=== PATIENT | male | born 1955 | race African-American/Black ===

== ENCOUNTER 2017-07-21 21:33 | Emergency (ER) | payer MEDICAID, OTHER ==
[~2017-07-21 21:33] MED LIST: LISI-363 PO; TRAM50 PO
[2017-07-21 21:35] VITALS: BP 195/90; PULSE 100; RESP 16; TEMP 98.8; O2SAT 97
[2017-07-21] MEDS ORDERED: SODIUM CHLORIDE 0.9% FLUSH 10 ML FLUSH IV FLUSH PRN (22:15)
[2017-07-21 22:38] LABS: AUTOMATED NEUTROPHIL # 5.2 TH/MM3 (1.8-7.7); BASOPHIL % 0.3 % (0.0-2.0); EOSINOPHIL # 0.2 TH/MM3 (0-0.4); EOSINOPHIL % 2.6 % (0.0-4.0); HEMATOCRIT 40.4 % (39.0-51.0); HEMO FLAGS DIFF FINAL; LYMPH % 30.2 % (9.0-44.0); LYMPHOCYTE # 2.7 TH/MM3 (1.0-4.8); MEAN CELL VOLUME 83.4 FL (80.0-100.0); MEAN CORPUSCULAR HEMOGLOBIN 26.9 PG (27.0-34.0); MEAN CORPUSCULAR HGB CONC 32.3 % (32.0-36.0); MONO % 8.7 % (0.0-8.0); NEUT % 58.2 % (16.0-70.0); PLATELET COUNT 239 TH/MM3 (150-450); RED BLOOD COUNT 4.85 MIL/MM3 (4.50-5.90); RED CELL DISTRIBUTION WIDTH 13.1 % (11.6-17.2); WHITE BLOOD COUNT 8.9 TH/MM3 (4.0-11.0)
[2017-07-21 22:39] LABS: BLOOD, URINE NEG (NEG); GLUCOSE,URINE 1000 mg/dL (NEG); KETONE, URINE TRACE mg/dL (NEG); NITRITE,URINE NEG (NEG); PH, URINE 5.5 (5.0-8.5); URINE COLOR LIGHT-YELLOW (YELLW/STRAW)
[2017-07-21 22:40] VITALS: BP 144/73; PULSE 95; RESP 18; O2SAT 99
[2017-07-21 22:44] LABS: COMMENT (UR) CULT NOT INDICATED; CULTURE IF INDICATED CULT NOT INDICATED
--- NOTE | 2017-07-21 22:46 | PD ---
HPI . Abdominal pain and dizziness Chief Complaint: Abdominal Pain Time Seen by Provider: 22:09 Travel History International Travel<30 days: No Contact w/Intl Traveler<30days: No Traveled to known affect area: No History of Present Illness HPI Patient presents with a two-week history of diffuse abdominal pain associated with nausea and dizziness. He is describing diffuse abdominal discomfort. He rates it 5/10. He has not noted any modifying factors. He further reports that his stool is getting dark and he also states that he urinates all the time. He states he has to get up numerous times during the night to urinate. No dysuria. No fever. No nausea, vomiting or diarrhea. There was nothing different about his problems tonight that caused him to present to the emergency department. [facility] Past Medical History Cardiovascular Problems: Yes (HYPERTENSION) High Cholesterol: Yes Diminished Hearing: No Hypertension: Yes Tetanus Vaccination: Unknown Influenza Vaccination: No Past Surgical History Other Surgery: Yes (RIGHT GROIN HERNIA) Social History Alcohol Use: No Tobacco Use: No Substance Use: No Allergies-Medications (Allergen,Severity, Reaction): Coded Allergies: No Known Allergies (Unverified , 07/21/17) Reported Meds & Prescriptions Reported Meds & Active Scripts Active Metformin (Metformin HCl) 500 Mg Tab 500 Mg PO BIDPC Prilosec (Omeprazole Magnesium) 20 Mg Tab 20 Mg PO DAILY Review of Systems Except as stated in HPI: all other systems reviewed are Neg General / Constitutional: Positive: Weight Loss, No: Fever, Chills Eyes: No: Blurred Vision HENT: Positive: Lightheadedness Cardiovascular: No: Chest Pain or Discomfort Respiratory: No: Shortness of Breath Gastrointestinal: Positive: Abdominal Pain, No: Nausea, Vomiting, Diarrhea Genitourinary: Positive: Frequency, Nocturia, No: Dysuria, Decreased Urinary Output Musculoskeletal: Positive: Arthralgias (chronic left hip pain) Physical Exam Narrative GENERAL: Awake and alert and in no acute distress. SKIN: warm/dry. HEAD: Normocephalic. Atraumatic. EYES: Pupils equal and round. No scleral icterus. No injection or drainage. ENT: No nasal bleeding or discharge. Mucous membranes pink and moist. NECK: Trachea midline. Full range of motion without pain.. CARDIOVASCULAR: Regular rate and rhythm. Soft systolic ejection murmur. RESPIRATORY: No accessory muscle use. Clear to auscultation. Breath sounds equal bilaterally. GASTROINTESTINAL: Abdomen soft. Nontender. Bowel sounds present. Nondistended. RECTAL: Prostate is enlarged. It is smooth. There is brown stool in the rectal vault. No hemorrhoids noted. MUSCULOSKELETAL: No obvious deformities. NEUROLOGICAL: Awake and alert. No obvious cranial nerve deficits. Motor grossly within normal limits. Normal speech. PSYCHIATRIC: Appropriate mood and affect; insight and judgment normal. Data Data Last Documented VS Vital Signs Date Time Temp Pulse Resp B/P (MAP) Pulse Ox O2 Delivery O2 Flow Rate FiO2 07/21/17 22:40 95 18 144/73 (96) 99 Room Air 07/21/17 21:35 98.8 Orders Orders Complete Blood Count With Diff (07/21/17 22:10) Comprehensive Metabolic Panel (07/21/17 22:10) Lipase (07/21/17 22:10) Lactic Acid (07/21/17 22:10) Urinalysis - C+S If Indicated (07/21/17 22:10) Iv Access Insert/Monitor (07/21/17 22:10) Sodium Chloride 0.9% Flush (Ns Flush) (07/21/17 22:15) Sodium Chlor 0.9% 1000 Ml Inj (Ns 1000 M (07/21/17 23:00) Ct Abd/Pel W/O Iv Contrast (07/21/17 22:51) Insulin Human Regular Inj (Novolin R Inj (07/21/17 23:15) Famotidine Inj (Pepcid Inj) (07/22/17 00:15) Labs Laboratory Tests Test 07/21/17 22:30 White Blood Count 8.9 TH/MM3 Red Blood Count 4.85 MIL/MM3 Hemoglobin 13.1 GM/DL Hematocrit 40.4 % Mean Corpuscular Volume 83.4 FL Mean Corpuscular Hemoglobin 26.9 PG Mean Corpuscular Hemoglobin Concent 32.3 % Red Cell Distribution Width 13.1 % Platelet Count 239 TH/MM3 Mean Platelet Volume 8.2 FL Neutrophils (%) (Auto) 58.2 % Lymphocytes (%) (Auto) 30.2 % Monocytes (%) (Auto) 8.7 % Eosinophils (%) (Auto) 2.6 % Basophils (%) (Auto) 0.3 % Neutrophils # (Auto) 5.2 TH/MM3 Lymphocytes # (Auto) 2.7 TH/MM3 Monocytes # (Auto) 0.8 TH/MM3 Eosinophils # (Auto) 0.2 TH/MM3 Basophils # (Auto) 0.0 TH/MM3 CBC Comment DIFF FINAL Differential Comment Urine Color LIGHT-YELLOW Urine Turbidity CLEAR Urine pH 5.5 Urine Specific [place] 1.030 Urine Protein NEG mg/dL Urine Glucose (UA) 1000 mg/dL Urine Ketones TRACE mg/dL Urine Occult Blood NEG Urine Nitrite NEG Urine Bilirubin NEG Urine Urobilinogen LESS THAN 2.0 MG/DL Urine Leukocyte Esterase NEG Urine RBC LESS THAN 1 /hpf Urine WBC LESS THAN 1 /hpf Microscopic Urinalysis Comment CULT NOT INDICATED Blood Urea Nitrogen 15 MG/DL Creatinine 1.46 MG/DL Random Glucose 494 MG/DL Total Protein 7.4 GM/DL Albumin 3.3 GM/DL Calcium Level 8.7 MG/DL Alkaline Phosphatase 106 U/L Aspartate Amino Transf (AST/SGOT) 12 U/L Alanine Aminotransferase (ALT/SGPT) 20 U/L Total Bilirubin 0.4 MG/DL Sodium Level 131 MEQ/L Potassium Level 4.3 MEQ/L Chloride Level 97 MEQ/L Carbon Dioxide Level 24.6 MEQ/L Anion Gap 9 MEQ/L Estimat Glomerular Filtration Rate 59 ML/MIN Lactic Acid Level 1.2 mmol/L Lipase 335 U/L MDM Medical Decision Making Medical Screen Exam Complete: Yes Emergency Medical Condition: Yes Differential Diagnosis Differential diagnosis of abdominal pain includes but is not limited to gastritis, pancreatitis, hepatitis, gastroenteritis, gallbladder disease, constipation, urinary retention, UTI, peptic ulcer disease, diverticulitis or appendicitis Narrative Course Patient presents for evaluation of abdominal pain, dark stools, urinary symptoms and dizziness. Stools are Hemoccult positive. CBC & BMP Diagram 07/21/17 22:30 Total Protein 7.4, Albumin 3.3 L, Calcium Level 8.7, Alkaline Phosphatase 106, Aspartate Amino Transf (AST/SGOT) 12 L, Alanine Aminotransferase (ALT/SGPT) 20, Total Bilirubin 0.4 UA>> + glucose CT abd/pelvis: 1. Localized mesenteric edema/fat stranding in the upper abdomen as described above, probably on the basis of pancreatitis or duodenitis/peptic ulcer disease. No abscess or perforation demonstrated. 2. Other findings appear chronic. Small cysts of the liver, small probable cyst of the lower pole of the right kidney and atherosclerosis of the abdominal aorta noted. I am not too concerned about the inflammatory changes seen on the CT. His lipase is normal and his white count is normal. I will treat him for presumed peptic ulcer disease given his Hemoccult positive stools. He reports that he does not have a primary care physician because of financial reasons. I will start him on metformin for new onset diabetes. I will give him a referral to the [facility]. Blood sugar came down into the 100's with insulin. He is hemodynamically stable and will be discharged. [facility] Internal Pos. & Neg. Controls: Passed Fecal Specimen Occult Blood: Positive Diagnosis Primary Impression: Abdominal pain Qualified Codes: R10.84 - Generalized abdominal pain Additional Impressions: Occult blood in stools Diabetes Qualified Codes: E11.9 - Type 2 diabetes mellitus without complications Patient Instructions: Diet for Stomach Ulcers and Gastritis (ED), General Instructions, Type 2 Diabetes in Adults (DC) Additional Instructions: You probably have an ulcer in your stomach or upper small intestine. This is probably what is making her abdomen hurt. It is probably also what is causing him to have dark stools. The Prilosec should help this. Please follow up at [facility] next week for recheck. Med/Other Pt SpecificInfo: Prescription(s) given Scripts Metformin (Metformin) 500 Mg Tab 500 MG PO BIDPC for Blood Sugar Management, #180 TAB 0 Refills Prov: Suri Oneal MD 07/22/17 Omeprazole Magnesium (Prilosec) 20 Mg Tab 20 MG PO DAILY, #90 Prov: Suri Oneal MD 07/22/17 Disposition: 01 DISCHARGE HOME Condition: Stable Suri Oneal MD Jul 21, 2017 22:46
[2017-07-21 22:59] LABS: ALKALINE PHOSPHATASE 106 U/L (45-117); ALT (GPT) 20 U/L (12-78); ANION GAP 9 MEQ/L (5-15); AST (GOT) 12 U/L (15-37); BICARBONATE 24.6 MEQ/L (21.0-32.0); BLOOD UREA NITROGEN 15 MG/DL (7-18); CHLORIDE 97 MEQ/L (98-107); GLOMERULAR FILTRATION RATE 59 ML/MIN (>89); POTASSIUM 4.3 MEQ/L (3.5-5.1); SODIUM (NA) 131 MEQ/L (136-145); TOTAL BILIRUBIN ADULT 0.4 MG/DL (0.2-1.0)
[2017-07-21] MEDS ORDERED: SODIUM CHLOR 0.9% 1000 ML INJ 1,000 ML IV ONE (23:00)
[2017-07-21] MEDS ORDERED: INSULIN HUMAN REGULAR 1,000 UNITS/10 ML VIAL IV PUSH ONE (23:15)
--- NOTE | 2017-07-21 23:46 | RADRPT ---
EXAM DATE/TIME: 07/21/2017 23:27 [place] COMPARISON: No previous studies available for comparison. INDICATIONS : Diffuse abdominal pain with nausea. ORAL CONTRAST: No oral contrast ingested. RADIATION DOSE: 8.81 CTDIvol (mGy) MEDICAL HISTORY : Hypertension. Hernia, inguinal. SURGICAL HISTORY : None. ENCOUNTER: Initial ACUITY: 2 weeks PAIN SCALE: 5/10 LOCATION: All quadrants. TECHNIQUE: Volumetric scanning of the abdomen and pelvis was performed. Using automated exposure control and ad justment of the mA and/or kV according to patient size, radiation dose was kept as low as reasonably achievable to obtain optimal diagnostic quality images. DICOM format image data is available electro nically for review and comparison. FINDINGS: Mild edema/fat stranding seen focally in the upper abdomen slightly right of midline, generally anter ior to the pancreatic head, inferior to the proximal duodenum and posterior to the proximal transvers e colon. I believe duodenitis or had pancreatitis would most likely be responsible. No other focal in flammatory changes are demonstrated. The appendix is normal. A few scattered subcentimeter cysts are seen in the liver. CT appearance of the gallbladder within no rmal limits. Spleen, adrenal glands and left kidney are normal. There is a 14 mm low-density structur e of the lower pole of the right kidney most likely a cyst. No free fluid. No lymphadenopathy. Tortuosity and atherosclerosis seen of the abdominal aorta. No ane urysm. Visualized lung bases are clear. No acute bony abnormality demonstrated. 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 CONCLUSION: 1. Localized mesenteric edema/fat stranding in the upper abdomen as described above, probably on the basis of pancreatitis or duodenitis/peptic ulcer disease. No abscess or perforation demonstrated. 2. Other findings appear chronic. Small cysts of the liver, small probable cyst of the lower pole of the right kidney and atherosclerosis of the abdominal aorta noted. Carlos Henry MD on July 21, 2017 at 23:40 Board Certified Radiologist. This report was verified electronically.
[2017-07-22] MEDS ORDERED: PRIL20TA2 PO (00:11)
[2017-07-22] MEDS ORDERED: METF500T PO (00:11)
[2017-07-22] MEDS ORDERED: FAMOTIDINE 20 MG/2 ML VIAL IV PUSH SCH (00:15)
[2017-07-22 01:12] VITALS: BP 140/77; PULSE 90; RESP 18; O2SAT 100
== END 2017-07-22 01:16 | disposition home or self-care (01) ==
LOC: NEPE 21:33
DX: R10.84 Generalized abdominal pain (principal); R19.5 Other fecal abnormalities; E11.9 Type 2 diabetes mellitus without complications; I10 Essential (primary) hypertension; E78.00 Pure hypercholesterolemia, unspecified
CPT/HCPCS: 74176; 80053; 81001; 83605; 83690; 85025; 96361; 96374; 99285; J1815; J7030